=== PATIENT | male | born 1940 | race Two or more races ===

== ENCOUNTER 2020-10-14 18:36 | Emergency (ER) | payer OTHER ==
[~2020-10-14] VITALS: Ht 172.7 cm; Wt 81.6 kg
[2020-10-14] MEDS ORDERED: TOPROL XL50 M1 PO (18:45)
== END 2020-10-15 19:10 | disposition home or self-care (01) ==
LOC: ER 18:36
DX: N47.1 Phimosis (principal); R33.8 Other retention of urine; R07.89 Other chest pain; I16.0 Hypertensive urgency; Z20.822 Contact with and (suspected) exposure to COVID-19

== ENCOUNTER 2021-09-03 14:46 | Inpatient (IN) | payer OTHER ==
[~2021-09-03] VITALS: Ht 175.3 cm; Wt 81.6 kg
[~2021-09-03 14:46] MED LIST: TOPROL XL50 M1 PO
[2021-09-04] MEDS ORDERED: AMLODIPINE BESY10 MG (08:23)
[2021-09-04] MEDS ORDERED: DSS100 MG (08:23)
[2021-09-04] MEDS ORDERED: METOPROLOL TART50 MG (08:23)
[2021-09-04] MEDS ORDERED: EZETIMIBE10 MG (08:23)
[2021-09-04] MEDS ORDERED: HYDRALAZINE HCL50 MG (08:23)
[2021-09-04] MEDS ORDERED: RAMIPRIL10 MG (08:23)
[2021-09-04] MEDS ORDERED: ATORVASTATIN CA20 MG (08:23)
[2021-09-04] MEDS ORDERED: FAMOTIDINE20 MG (08:23)
[2021-09-04] MEDS ORDERED: ISOSORBIDE MONO30 M2 (08:23)
[2021-09-04] MEDS ORDERED: ST. JOSEPH ASPI81 M2 (08:24)
== END 2021-09-17 11:40 | disposition left against medical advice (07) | DRG 689 ==
LOC: ER 14:46 → MEDJ 23:33 → MEDI 09-04 12:31
PROVIDERS: ADMIT Internal Medicine; ATTEND Internal Medicine
PROC: BW21ZZZ Computerized Tomography (CT Scan) of Abdomen and Pelvis (ICD-10-PCS; principal; 2021-09-03)
PROC: BT43ZZZ Ultrasonography of Bilateral Kidneys (ICD-10-PCS; 2021-09-03)
PROC: BW28ZZZ Computerized Tomography (CT Scan) of Head (ICD-10-PCS; 2021-09-04)
DX: N39.0 Urinary tract infection, site not specified (principal); G92.8 Other toxic encephalopathy; N17.8 Other acute kidney failure; F05 Delirium due to known physiological condition; I12.9 Hypertensive chronic kidney disease with stage 1 through stage 4 chronic kidney disease, or unspecified chronic kidney disease; N18.9 Chronic kidney disease, unspecified; E86.0 Dehydration; R41.82 Altered mental status, unspecified; I71.4 Abdominal aortic aneurysm, without rupture; Z20.822 Contact with and (suspected) exposure to COVID-19